=== PATIENT | male | born 1950 | race Caucasian/White ===

== ENCOUNTER 2017-03-15 10:42 | Outpatient (CLI) | payer OTHER ==
--- NOTE | 2017-03-15 11:32 | DIAGNOSTIC IMAGING REPORT ---
PROCEDURE: US SOFT TISSUE THYR/NECK/HEAD INDICATION: SOFT TISSUE MASS TECHNIQUE: Tubbs scale and color Doppler sonographic images of the thyroid gland were obtained. COMPARISON: None. FINDINGS: In the superior neck just to the right of midline there is a lipoma that measures 4.5 x 4.7 x 1.6 cm. The right thyroid lobe measures 4.8 x 1.9 x 2.2 cm The left thyroid lobe measures 4.2 1.6 x 2.5 cm The isthmus measures 5 mm in thickness. The echotexture of the gland is homogeneous. There are no dominant solid nodules or cysts. No suspicious calcification. Color Doppler imaging demonstrates homogeneous vascularity throughout the gland. No significant adenopathy adjacent to the gland. IMPRESSION: 1. Normal thyroid gland. 2. Lipoma measuring 4.5 x 4.7 x 1.6 cm
== END 2017-03-15 23:00 | disposition home or self-care (01) ==
LOC: US SRH 10:42
DX: D17.0 Benign lipomatous neoplasm of skin and subcutaneous tissue of head, face and neck (principal)